=== PATIENT | male | born 1995 | race Caucasian/White ===

== ENCOUNTER 2024-04-14 17:06 | Emergency (ER) | payer BC ==
[~2024-04-14] VITALS: Ht 175.3 cm; Wt 90.7 kg
== END 2024-04-14 18:30 | disposition home or self-care (01) ==
LOC: ER 17:06
DX: F41.9 Anxiety disorder, unspecified (principal); R06.4 Hyperventilation; F17.210 Nicotine dependence, cigarettes, uncomplicated
CPT/HCPCS: 99283